=== PATIENT | male | born 1960 | race Caucasian/White ===

== ENCOUNTER 2020-05-24 12:34 | Emergency (ER) | payer MEDICARE ==
[~2020-05-24] VITALS: Ht 172.7 cm; Wt 75.0 kg
[2020-05-24] MEDS ORDERED: METOCLOPRAMIDE HCL 10MG/2ML VIAL IV STA (14:22)
[2020-05-24] MEDS ORDERED: VISCOUS LIDOCAINE 2% 15 ML UDC PO STA (14:22)
[2020-05-24] MEDS ORDERED: MAGNESIUM/ALUMINUM HYDROXIDE/SIMETHICONE 30ML UDC PO STA (14:22)
[2020-05-24 16:22] LABS: BASOPHILS % 0.2 % (0.0-2.0); EOSINOPHILS % 0.9 % (0.0-5.0); HEMATOCRIT. 40.6 % (42.0-52.0); HEMOGLOBIN. 13.8 g/dL (14.0-18.0); MEAN CORPUSCULAR HEMOGLOBIN 30.2 pg (28.0-32.0); MEAN PLATELET VOLUME 6.5 fl (7.4-10.4); MONOCYTES % 6.2 % (2.0-8.0); NEUTROPHILS % 57.7 % (40.0-76.0); PLATELET 311 x1000/uL (130-400); RED BLOOD CELL COUNT 4.56 mill/uL (4.7-6.1); RED CELL DISTRIBUTION WIDTH 13.4 % (11.6-14.6)
[2020-05-24 16:28] LABS: CHLORIDE 107 mEq/L (98-107)
[2020-05-24] MEDS ORDERED: BACLOFEN 10MG TABLET PO NR (20:00)
[2020-05-24] MEDS ORDERED: SODIUM CHLORIDE 0.9% 1,000 ML IV ONE (20:15)
[2020-05-24 20:50] VITALS: BP 134/80
== END 2020-05-24 22:36 | disposition home or self-care (01) ==
LOC: ER 12:34 → CANBEDREQ 22:58
DX: R10.13 Epigastric pain (principal); K80.80 Other cholelithiasis without obstruction; M54.89 Other dorsalgia; E11.9 Type 2 diabetes mellitus without complications
CPT/HCPCS: 36415; 71045; 76700; 80053; 83690; 84484; 85025; 93005; 96374; 99285; J2765; J7030